=== PATIENT | male | born 1985 ===

== ENCOUNTER 2020-12-10 20:10 | Emergency (ER) | payer OTHER ==
[2020-12-10 21:00] VITALS: BP 120/75
--- NOTE | 2020-12-10 21:27 | Event Note ---
ED Screening Note Date of service: 12/10/20 Time: 21:23 ED Screening Note: Patient presents with police from prison [place] finger today and had a syncopal episode c/o headache no neck pain, chest pain, or SOB This initial assessment/diagnostic orders/clinical plan/treatment(s) is/are subject to change based on patients health status, clinical progression and re- assessment by fellow clinical providers in the ED. Further treatment and workup at subsequent clinical providers discretion. Patient/guardian urged not to elope from the ED as their condition may be serious if not clinically assessed and managed. Initial orders include: labs ekg ct head
[2020-12-10 21:28] LABS: Basophils # (Auto) 0.1 K/mm3 (0.0-0.1); Basophils % (Auto) 1.1 % (0.0-1.8); Eosinophils # (Auto) 0.1 K/mm3 (0.0-0.4); Eosinophils % (Auto) 1.2 % (0.0-4.3); Hematocrit 42.5 % (35.5-45.6); Hemoglobin 14.7 gm/dl (11.8-15.2); Lymphocytes # (Auto) 2.1 K/mm3 (1.2-5.4); Mean Corpuscular HGB Conc 35 % (32-34); Mean Corpuscular Volume 93 fl (84-94); Monocytes # (Auto) 0.8 K/mm3 (0.0-0.8); Monocytes % (Auto) 6.5 % (0.0-7.3); Platelet Count 288 K/mm3 (140-440); Red Blood Count 4.55 M/mm3 (3.65-5.03); Red Cell Distribution Width 13.8 % (13.2-15.2)
[2020-12-10 21:47] LABS: Alanine Aminotransferase 18 units/L (7-56); Albumin 4.5 g/dL (3.9-5); BUN/Creatinine Ratio 19; Blood Urea Nitrogen 13 mg/dL (9-20); Calcium 9.5 mg/dL (8.4-10.2); Hemolysis Index 6
--- NOTE | 2020-12-10 22:20 | Cat Scan Report ---
CT HEAD WITHOUT CONTRAST INDICATION : syncope, left sided headache. TECHNIQUE: Axial CT imaging was performed from the skull apex through the skull base without contras t. All CT scans at this location are performed using CT dose reduction for ALARA by means of automat ed exposure control. COMPARISON: None available. FINDINGS: PARENCHYMA: No mass, midline shift, hemorrhage, extraaxial collection or acute territorial infarctio n. VENTRICLES: Symmetric and normal in size. SOFT TISSUES: No significant abnormality of the included soft tissues/orbits. BONES: No acute osseous abnormality. SINUSES: No significant abnormality. ADDITIONAL FINDINGS: None. IMPRESSION: 1. No acute intracranial abnormality. Signer Name: Elias Snider MD Signed: 12/10/2020 10:16 PM Workstation Name: [id number]
[2020-12-11] MEDS ORDERED: ACETAMINOPHEN 325 MG TAB PO ONE (00:54)
[2020-12-11] MEDS ORDERED: IBUPROFEN 800 MG TAB PO ONE (00:54)
[2020-12-11] MEDS ORDERED: NEOMY 3.5 MG/BACIT 400 UNITS/POLY B 5000 UNITS/GM OINT PACKET TP STA (00:55)
--- NOTE | 2020-12-11 01:01 | Emergency Department Report ---
ED General Adult HPI - General Chief complaint: Wound/Laceration Stated complaint: LACERATION TO FINGER,HEAD BRUSE Time Seen by Provider: 12/10/20 21:02 Source: patient, EMS Mode of arrival: Wheelchair Limitations: No Limitations - History of Present Illness Initial comments: 35-year-old male patient presents in police custody for a right index finger laceration occurring today with syncopal episode following. Patient states he accidentally cut his finger with a razor and when he saw the blood made him feel dizzy and he passed out. He states he hit the left side of his head and has a mild headache. He denies any nausea/vomiting, vision changes, numbness/tingling/weakness in his limbs, dizziness, chest pain, shortness of breath, difficulty with speech/ambulation. No memory loss per patient. Patient is unsure of how long he was unconscious. No blood thinners per patient. He is unsure of his last tetanus vaccine. - Related Data Previous Rx's Medication Instructions Recorded Last Taken Type Ibuprofen [Motrin 800 MG tab] 800 mg PO TID PRN #21 tablet 12/11/20 Unknown Rx Mupirocin [Bactroban 2% OINT] 1 applic TP TID 7 Days #1 tube 12/11/20 Unknown Rx Allergies Allergy/AdvReac Type Severity Reaction Status Date / Time No Known Allergies Allergy Verified 12/10/20 20:59 ED Review of Systems ROS: Stated complaint: LACERATION TO FINGER,HEAD BRUSE Other details as noted in HPI Constitutional: denies: malaise Eyes: denies: eye pain, vision change Respiratory: denies: shortness of breath Cardiovascular: denies: chest pain Gastrointestinal: denies: abdominal pain, nausea, vomiting Neurological: headache. denies: weakness, numbness, paresthesias, confusion, abnormal gait Hematological/Lymphatic: denies: easy bleeding ED Past Medical Hx - Past Medical History Previous Medical History?: No - Surgical History Past Surgical History?: No - Social History Smoking Status: Never Smoker Substance Use Type: Alcohol - Medications Home Medications: Home Medications Medication Instructions Recorded Confirmed Last Taken Type Ibuprofen [Motrin 800 MG tab] 800 mg PO TID PRN #21 tablet 12/11/20 Unknown Rx Mupirocin [Bactroban 2% OINT] 1 applic TP TID 7 Days #1 tube 12/11/20 Unknown Rx ED Physical Exam - General Limitations: No Limitations General appearance: alert, in no apparent distress - Head Head exam: Present: atraumatic, normocephalic, normal inspection - Eye Eye exam: Present: normal appearance, PERRL, EOMI. Absent: scleral icterus - Neck Neck exam: Present: normal inspection, full ROM. Absent: tenderness - Respiratory Respiratory exam: Present: normal lung sounds bilaterally. Absent: respiratory distress - Cardiovascular Cardiovascular Exam: Present: regular rate, normal rhythm - GI/Abdominal GI/Abdominal exam: Present: soft. Absent: tenderness - Extremities Exam Extremities exam: Present: full ROM - Back Exam Back exam: Present: full ROM - Neurological Exam Neurological exam: Present: alert, oriented X3, CN II-XII intact, normal gait. Absent: motor sensory deficit - Expanded Neurological Exam Expanded Cerebellar function: Finger to Nose: Normal, Romberg: Normal Sensory exam: Upper Extremity Light Touch: Normal, Lower Extremity Light Touch: Normal Motor strength exam: RUE: 5, LUE: 5, RLE: 5, LLE: 5 - Psychiatric Psychiatric exam: Present: normal affect, normal mood - Skin Skin exam: Present: warm, dry, normal color. Absent: intact (Shave laceration noted to right index finger with minimal active bleeding; no obvious foreign bodies noted), rash ED Course Vital Signs 12/10/20 20:57 Temperature 98.5 F Pulse Rate 51 L Respiratory 17 Rate Blood Pressure 120/75 O2 Sat by Pulse 99 Oximetry ED Medical Decision Making - Lab Data Result diagrams: 12/10/20 21:11 12/10/20 21:11 - EKG Data EKG shows normal: sinus rhythm Rate: bradycardia - EKG Data Interpretation: nonspecific ST-T wave adonis (Appears to be early repolarization) - Radiology Data Radiology results: report reviewed CT HEAD WITHOUT CONTRAST INDICATION : syncope, left sided headache. TECHNIQUE: Axial CT imaging was performed from the skull apex through the skull base without contrast. All CT scans at this location are performed using CT dose reduction for ALARA by means of automated exposure control. COMPARISON: None available. FINDINGS: PARENCHYMA: No mass, midline shift, hemorrhage, extraaxial collection or acute territorial infarction. VENTRICLES: Symmetric and normal in size. SOFT TISSUES: No significant abnormality of the included soft tissues/orbits. BONES: No acute osseous abnormality. SINUSES: No significant abnormality. ADDITIONAL FINDINGS: None. IMPRESSION: 1. No acute intracranial abnormality. - Medical Decision Making 35-year-old male patient presents in police custody for a right index finger laceration occurring today with syncopal episode following. Patient states he accidentally cut his finger with a razor and when he saw the blood m danny him feel dizzy and he passed out. He states he hit the left side of his head and has a mild headache. He denies any nausea/vomiting, vision changes, numbness/tingling/weakness in his limbs, dizziness, chest pain, shortness of breath, difficulty with speech/ambulation. No memory loss per patient. Patient is unsure of how long he was unconscious. No blood thinners per patient. He is unsure of his last tetanus vaccine. No sutures needed for shave laceration. Neosporin and sterile dressing applied. Prescription for Bactroban given. Discussed wound care and signs and symptoms of infection that should prompt immediate return to the emergency department in detail with patient who verbalizes understanding. CT head is negative for any abnormalities. No significant abnormalities noted on CBC or CMP or troponin. EKG is WNL. Orthostatic vitals are normal. Syncopal episode likely vasovagal episode given history. He is neurologically intact on exam. Discussed possible concussion and importance of brain rest. Also discussed with patient and accompanying officers the patient will need to see a doctor for recheck of his wound and headache. He is well-appearing, his vitals are normal, he is stable for discharge Critical care attestation.: If time is entered above; I have spent that time in minutes in the direct care of this critically ill patient, excluding procedure time. ED Disposition Clinical Impression: Syncope and collapse, Headache, Vasovagal episode Laceration of index finger Qualifiers: Encounter type: initial encounter Damage to nail status: without damage Laterality: right Disposition: DC-01 TO HOME OR SELFCARE Is pt being admited?: No Condition: Stable Instructions: Syncope (ED), Nonsutured Laceration Care, Syncope, Head Injury, Adult, Concussion, Adult Prescriptions: Mupirocin [Bactroban 2% OINT] 1 applic TP TID 7 Days #1 tube Ibuprofen [Motrin 800 MG tab] 800 mg PO TID PRN #21 tablet PRN Reason: headache/pain Referrals: PRIMARY CARE, [Primary Care Provider] - 12/13/20 (Recheck after syncope and headache, Wound recheck ) Print Language: LATVIAN
[2020-12-11] MEDS ORDERED: DIPHtheria,PERTUSSIS(ACELL),TETANUS VACCINE/PF 0.5 ML VIAL IM ONE (01:02)
== END 2020-12-11 01:42 | disposition home or self-care (01) ==
LOC: EEVIPCON 20:10 → ED 20:10
DX: S61.218A Laceration without foreign body of other finger without damage to nail, initial encounter (principal); R55 Syncope and collapse; R51.9 Headache, unspecified; Z79.899 Other long term (current) drug therapy; W45.8XXA Other foreign body or object entering through skin, initial encounter; Y93.89 Activity, other specified; Y92.89 Other specified places as the place of occurrence of the external cause; Y99.8 Other external cause status
CPT/HCPCS: 36415; 70450; 80053; 84484; 85025; 90471; 90715; 93005; 99284; A6250